=== PATIENT | female | born 1995 | race African-American/Black ===

== ENCOUNTER 2016-11-16 09:45 | Emergency (ER) | payer OTHER ==
[~2016-11-16] VITALS: Ht 149.9 cm; Wt 60.3 kg
[~2016-11-16 09:45] MED LIST: BENZONATATE200 M1 PO; CIPRO HC OTIC S10 ML OT; IBUPROFEN800 M1 PO; MEDROL4 M2 PO
[2016-11-16 10:10] VITALS: BP 113/76
--- NOTE | 2016-11-16 11:06 | ED GENERAL ADULT ---
History of Present Illness General Chief Complaint: Ear Complaints Stated Complaint: RT EAR RINGING THIS AM BILATERAL RINGING Source: patient, old records Exam Limitations: no limitations Vital Signs & Intake/Output Vital Signs & Intake/Output Vital Signs Date Time Temp Pulse Resp B/P Pulse O2 O2 Flow FiO2 Ox Delivery Rate 11/16 1011 100 Room Air 11/16 1010 96.8 84 18 113/76 99 Room Air Allergies Coded Allergies: NO KNOWN ALLERGIES (07/07/12) Triage Note: 21 Y/O FEMALE C/O BILATERAL EAR RINGING SINCE THIS AM. DENIES PAIN. DENIES OTHER COMPLAINTS Triage Nurses Notes Reviewed? yes : No Patient currently breastfeeds: No HPI: 21 yo female w/ PMH prev ear infections who comes in with CC of "ringing in my ear." Pt states that the tinnitus started thsi am. She work up with [place] ear rinign but it soon lateralized to her right ear. The ringing is accompanied by "whooshing" and "roaring" in her ear. Otherwise pt denies otalgia, nausea, dizziness, change in gait, headache,vomiting, pharyngitis, sinusitis or recent illness. She denies any travel or sick contacts. She also denies any ASA ingestion. She has history of pediatric ear infections. (NGUYỄN QUINN,KATHY) Reconcile Medications Amoxicillin 875 MG TABLET 1 TAB PO BID EAR INFECTION Ciprofloxacin HCl/Dexameth (Ciprodex Otic Suspension) 0.3 %-0.1 % DROPS.SUSP 4 GTT OT BID ear infection (LOGAN ERAZO MD) Past History Travel History Traveled to [place] past 21 day No Medical History Any Pertinent Medical History? none Neurological: NONE EENT: NONE Cardiovascular: NONE Respiratory: NONE Gastrointestinal: NONE Hepatic: NONE Renal: NONE Musculoskeletal: NONE Psychiatric: NONE Endocrine: NONE Blood Disorders: NONE Cancer(s): NONE SHANK TAPPER/Reproductive: NONE Surgical History Surgical History: non-contributory Psychosocial History What is your primary language Brazilian Tobacco Use: Never used Family History Hx Contributory? No (NGUYỄN QUINN,KATHY) Review of Systems Review of Systems Constitutional: Denies: chills, diaphoresis, fever, malaise. EENTM: Denies: blurred vision, eye pain, ear discharge, ear pain, ear redness, hearing changes. Respiratory: Reports: no symptoms. Cardiovascular: Reports: no symptoms. GI: Reports: no symptoms. Genitourinary: Reports: no symptoms. Musculoskeletal: Reports: no symptoms. Skin: Reports: no symptoms. (KATHY ADRIAN MD) Review of Systems Neurological/Psychological: Reports: no symptoms. Hematologic/Endocrine: Reports: no symptoms. Immunologic/Allergic: Reports: no symptoms. All Other Systems: Reviewed and Negative (LOGAN ERAZO MD) Physical Exam Physical Exam General Appearance: well developed/nourished, no apparent distress, alert, awake Head: atraumatic, normal appearance Eyes: Bilateral: normal appearance, PERRL, EOMI. Ears, Nose, Throat: normal pharynx, right ear canal looks erythematous. No evidence of purulence. Tympanic membrane intact, reflexes present. Left ear canal slightly erythematous, less than the right side, no purulence noted, reflex intact. Neck: normal inspection, supple Respiratory: normal breath sounds Cardiovascular: regular rate/rhythm Gastrointestinal: normal bowel sounds Core Measures ACS in differential dx? No Severe Sepsis Present: No Septic Shock Present: No (KATHY ADRIAN MD) Physical Exam Extremities: normal inspection, normal capillary refill Neurologic/Psych: no motor/sensory deficits, awake, alert, oriented x 3 Reflexes: 2+: bicep (R), bicep (L). Skin: intact, normal color, warm/dry Lymphatic: no anterior cervical esteban Core Measures CVA/TIA Diagnosis: No (LOGAN ERAZO MD) Progress Differential Diagnoses I considered the following diagnoses in my evaluation of the patient: [Otitis interna, otitis externa, Mnire's, aspirin toxicity,] Plan of Care: Upon inspection, patient had copious earwax in both ears. Both ear canals are irrigated with warm saline and peroxide. Patient was dizzy and complained of otalgia upon irrigation of the right ear. After cleaning, inspection of the ear canal shows some erythema on the right side. Initial ED EKG: none (KATHY ADRIAN MD) Differential Diagnoses I considered the following diagnoses in my evaluation of the patient: (LOGAN ERAZO MD) Departure Departure Disposition: HOME OR SELF CARE Condition: Stable Clinical Impression Primary Impression: Otitis externa Referrals: PATIENT HAS NO PRIMARY CARE DR (PCP/Family) Additional Instructions: You are gettin getting a prescription for antibiotics and some ear drops. Kindly finished both prescriptions as directed. Follow-up with your ENT doctor and primary care as soon as possible. If your symptoms continue to worsen, have a fever, experience changes in hearing, return to ED. Departure Forms: Customer Survey General Discharge Information (NGUYỄN QUINN,KATHY) Departure Prescriptions: Current Visit Scripts Ciprofloxacin HCl/Dexameth (Ciprodex Otic Suspension) 4 GTT OT BID #1 BOT Amoxicillin 1 TAB PO BID #20 TAB Resident Co-Sign Statement Statement: ED Attending supervision documentation- x I saw and evaluated the patient. I have also reviewed all the pertinent lab results and diagnostic results. I agree with the findings and the plan of care as documented in the Resident's documentation. [] I have reviewed the ED Record and agree with the Resident's documentation. [] Additions or exceptions (if any) to the Resident's note and plan are summarized below: [] (CASTRO QUINN,LOGAN) Critical Care Note Critical Care Note Critical Care Time: non-applicable (KATHY ADRIAN MD)
[2016-11-16] MEDS ORDERED: AMOXICILLIN500 M3 PO (11:08)
[2016-11-16] MEDS ORDERED: CIPRODEX OTIC7.5 ML OT (11:08)
[2016-11-16] MEDS ORDERED: AMOXICILLIN875 M1 PO (11:19)
== END 2016-11-16 11:14 ==
LOC: ERH 09:45
DX: H60.91 Unspecified otitis externa, right ear (principal)